=== PATIENT | male | born 1990 | race Caucasian/White ===

== ENCOUNTER 2020-10-09 07:58 | Emergency (ER) | payer OTHER ==
[2020-10-09] MEDS ORDERED: PROVENTIL HFA6.7 GM INH (11:04)
[2020-10-09] MEDS ORDERED: MEDROL DOSEPAK 24 MG PO (11:04)
[2020-10-09] MEDS ORDERED: ALBUTEROL0.63 MG/3 INH (11:04)
== END 2020-10-09 11:25 | disposition home or self-care (01) ==
LOC: ER1 07:58
DX: J45.901 Unspecified asthma with (acute) exacerbation (principal); F17.210 Nicotine dependence, cigarettes, uncomplicated; Z20.822 Contact with and (suspected) exposure to COVID-19
CPT/HCPCS: 0240U; 71045; 94640; 94664; 99285